=== PATIENT | male | born 1950 | race Caucasian/White ===

== ENCOUNTER 2016-09-28 04:25 | Observation (INO) | payer MEDICARE, MEDICAID ==
--- NOTE | 2016-09-28 05:05 | HP ---
H&P (Free Text) History and Physical: PCP: Neela Avila DO Cardiology: Jeffry Santana MD Date/Time of Evaluation: 09/28/2016 0500 CC: SOB HPI: Mr Merchant is a highly evasive 66YO male HX CAD, ischemic cardiomyopathy, AFIB, DM, & CKD presents in transfer from [place] ED where he reported rapid onset of SOB and BLE swelling around 2230 prompting presentation to [place] ED where he was found to be in acute on chronic systolic HF with a troponin of 0.09 for which transfer was recommended by his PCP. He denies chest pain, N/V, palpitations, and light-headedness. He denies exacerbating or alleviating factors. Currently he relates his ankles are back to baseline size and his SOB has resolved, but is unaware what made them better. PMedHx ischemic cardiomyopathy EF 25-30% chronic systolic HF CAD/CABG pacerAICD AFIB DM2 HTN HLD CKD stg 3 hypothyroidism gout GERD Ambulatory Orders Metoprolol Succinate XL TAB* [Toprol XL TAB*] 25 mg PO BID 01/26/14 Spironolactone TAB* [Aldactone TAB 25 MG*] 25 mg PO DAILY 01/26/14 Acetaminophen TAB* [Tylenol TAB*] 2 tab PO Q4H PRN 08/13/15 Allopurinol TAB* [Zyloprim 100 MG TAB*] 100 mg PO DAILY 08/13/15 Atorvastatin* [Lipitor 20 MG*] 20 mg PO BEDTIME 08/13/15 Ibuprofen TAB* [Motrin TAB* 600 MG] 600 mg PO Q6H PRN 08/13/15 Insulin ASPART (NF) [Novolog (NF)] 24 unit SUBCUT TID 08/13/15 Insulin Glargine (Nf) [Toujeo Solostar Pen (NF)] 80 unit SUBCUT BEDTIME Levothyroxine TAB* [Synthroid 100 MCG TAB*] 200 mcg PO DAILY 08/13/15 Linagliptin (NF) [Tradjenta (NF)] 5 mg PO DAILY 08/13/15 Losartan TAB* [Cozaar TAB*] 25 mg PO DAILY 08/13/15 Omeprazole CAP* [Prilosec CAP* 20 MG] 20 mg PO DAILY 08/13/15 Torsemide [Demadex 10 MG-] 10 mg PO DAILY 08/13/15 Warfarin TAB(*) [Coumadin TAB(*)] 3 mg PO SUMOWEFR 08/13/15 Warfarin TAB(*) [Coumadin TAB(*)] 3.5 mg PO TUTHSA 08/13/15 Allergies Lisinopril Allergy (Verified 01/26/14 16:49) SocHx: quit smoking ~10 years ago continues to chew tobacco, former heavy drinker quit ~10 years ago, denies recreational drugs; resides at [facility] ; full code status FamHx: positive for DM2, HTN ROS: as above, otherwise reviewed and all were negative Constitutional: NAD, normally developed, obese white male vitals: Vital Signs Temp 36.3 C 09/28/16 04:40 Pulse 70 09/28/16 04:40 Resp 17 09/28/16 04:40 BP 111/62 09/28/16 04:40 Pulse Ox 94 09/28/16 04:40 Intake & Output 09/27/16 09/27/16 09/28/16 11:59 23:59 11:59 Weight 81.647 kg HEENM: atraumatic; sclera/conjunctiva: non-icteric/clear; hearing: clinically intact; oropharynx: clear, mucosa moist Neck: soft tissue: non-tender; thyroid: normal Pulmonary: clear to auscultation bilaterally, good aeration, no accessory muscle use CV: RR/RR, normal S1S2, no carotid bruit, no jugular venous distention, 2+ B DP/ PT, 1+ BLE edema Abdominal: soft, non-distended, non-tender, no rebound/guarding/rigidity, normoactive bowel sounds, no hepatosplenomegaly or masses, no costovertebral angle tenderness Musculoskeletal: general: grossly intact, no palpable tenderness 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 No acute cardiopulmonary disease seen. Impression: 66M presenting with acute on chronic systolic HF DIAGNOSIS & PLAN Primary acute on chronic systolic HF : furosemide diuresis : daily weights : strict I&Os : update ECHO : consider cardiology consult in AM pending above results Secondary ischemic cardiomyopathy EF 25-30%/chronic systolic HF : review meds once reconciled CAD/CABG : review meds once reconciled AFIB : review meds once reconciled DM2 : check A1c : review meds once reconciled : ACHS glucometry CKD stg 3 : review meds once reconciled hypothyroidism : review meds once reconciled GERD : PO omeprazole gout : review meds once reconciled Admission Rational: CDU observation for SOB, increased LE swelling DVTp: SCDs & continue warfarin Code Status: full HCP: sonRiley
[2016-09-28] MEDS ORDERED: Acetaminophen TAB* 325 MG PO PRN (05:07)
[2016-09-28] MEDS ORDERED: Albuterol 2.5 MG/3 ML NEB.SOL* (0.083%) INH PRN (05:07)
[2016-09-28] MEDS ORDERED: traMADol TAB* 50 MG PO PRN (05:09)
[2016-09-28] MEDS ORDERED: Ondansetron INJ* 2 MG/ML VIAL IV PRN (05:09)
--- NOTE | 2016-09-28 06:06 | ED ---
I, Oh,Omid, scribed for Tony Bowen MD on 09/28/16 at 0448 . Shortness of Breath - HPI Summary HPI Summary: This 66 y/o male presents to ED from [place] for acute on chronic SOB and BLE swelling since tonight. SOB is resolved upon arrival. Negative fever, chills, CP , n/v, diaphoresis, or cough. Stress test is not UTD. PMHx includes HTN, afib s/ p, CHF, and DM. 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 Pt is currently on diuretics and anticoagulants. - History of Current Complaint Chief Complaint: EDShortnessOfBreath Time Seen by Provider: 09/28/16 04:31 Hx Obtained From: Patient, Medical Records Onset/Duration: Still Present Timing: Constant Aggrevating Factors: Nothing Alleviating Factors: Spontaneous Resolution Associated Signs & Symptoms: Cough (Nonproductive), Edema - BLE - Allergy/Home Medications Allergies/Adverse Reactions: Allergies Allergy/AdvReac Type Severity Reaction Status Date / Time Lisinopril Allergy unk Verified 01/26/14 16:49 PMH/Surg Hx/FS Hx/Imm Hx Endocrine/Hematology History: Reports: Hx Diabetes, Hx Thyroid Disease - hypothyroid Cardiovascular History: Reports: Hx Congestive Heart Failure, Hx Hypertension, Hx Pacemaker/ICD - pacer/defibrilator, Other Cardiovascular Problems/Disorders - CABG, cardiomyopathy History: Reports: Hx Acute Renal Failure Musculoskeletal History: Reports: Hx Arthritis, Other Musculoskeletal History - several limb fractures, surgically repaired Sensory History: Reports: Hx Contacts or Glasses Opthamlomology History: Reports: Hx Contacts or Glasses Neurological History: Reports: Other Neuro Impairments/Disorders - encephalopathy Denies: Hx Dementia - Surgical History Hx Anesthesia Reactions: No Infectious Disease History: Denies: Traveled Outside the [place] in Last 30 Days - Family History Known Family History: Negative: Cardiac Disease - Social History Alcohol Use: None Alcohol Amount: Hx of ETOH abuse Substance Use Type: Reports: None Hx Tobacco Use: Yes Smoking Status (MU): Former Smoker Review of Systems Negative: Fever, Skin Diaphoresis Negative: Chest Pain Positive: Shortness Of Breath. Negative: Cough Negative: Vomiting, Nausea Positive: Edema - BLE All Other Systems Reviewed And Are Negative: Yes Physical Exam - Summary Physical Exam Summary: The patient is well-nourished in no acute distress and in no acute pain. The skin is warm and dry and skin color reflects adequate perfusion. Negative cyanosis. HEENT: The head is normocephalic and atraumatic. The pupils are equal and reactive. The conjunctivae are clear and without drainage. Nares are patent and without drainage. Mouth reveals moist mucous membranes and the throat is without erythema and exudate. The external ears are intact. The ear canals are patent and without drainage. The tympanic membranes are intact. Neck is supple with full range of motion and non-tender. There are no carotid bruits. There is positive neck vein distension. Respiratory: Chest is non-tender. Lungs are noted with crackles and decreased breath sounds. Cardiovascular: Hear is regular rate and rhythm. There is no murmur or rub auscultated. There is no peripheral edema and pulses are symmetrical and equal. Abdomen: The abdomen is soft and non-tender. There are normal bowel sounds heard in all four quadrants and there is no organomegaly palpated. Musculoskeletal: There is no back pain noted. Extremities are non-tender with full range of motion. There is good capillary refill. Pitting edema. No calf tenderness Neurological: Patient is alert and oriented to person, place and time. The patient has symmetrical motor strength in all four extremities. Cranial nerves are grossly intact. Deep tendon reflexes are symmetrical and equal in all four extremities. Psychiatric: The patient has an appropriate affect and does not exhibit any anxiety or depression. Triage Information Reviewed: Yes Vital Signs On Initial Exam: Initial Vitals Temp Pulse Resp BP Pulse Ox 97.4 F 70 17 111/62 94 09/28/16 04:34 09/28/16 04:34 09/28/16 04:34 09/28/16 04:34 09/28/16 04:34 Vital Signs Reviewed: Yes Diagnostics - Vital Signs Vital Signs Temp Pulse Resp BP Pulse Ox 09/28/16 04:34 97.4 F 70 17 111/62 94 - Laboratory Lab Statement: Any lab studies that have been ordered have been reviewed, and results considered in the medical decision making process. - EKG 0447 Cardiac Rate: Other Rate - Paced rhythm at 70 bpm Course/Dx - Course Assessment/Plan: This 66 y/o male presents to ED via ambulance from [place] for elevated BNP and SOB since yesterday. PMHx is signficant for CHF. EMR from [facility] is reviewed. Upon examination pt is noted with rhonchi and decreased breath sounds throughout, and bilat pitting edema. Plan of care involving admission for further work is discussed with Dr. Maldonado (Hospitalist information security manager), and pt is accepted for admission. - Diagnoses Differential Diagnosis/HQI/PQRI: Positive: CHF, ID, Other - renal insufficiency, Provider Diagnoses: Acute dyspnea, Elevated troponin - Physician Notifications Discussed Care of Patient With: Wilmar Maldonado Time Discussed With Above Provider: 04:56 Discharge - Discharge Plan Condition: Stable Disposition: ADMITTED TO [facility] documentation as recorded by the Ron ang Soohyun accurately reflects the service I personally performed and the decisions made by , Tony Bowen MD.
[2016-09-28 07:37] LABS: Hematocrit 38 % (42-52); Hemoglobin 11.6 g/dl (14.0-18.0); Mean Corpuscular HGB Conc 31 g/dl (31-36); Mean Corpuscular Hemoglobin 26 pg (27-31); Mean Corpuscular Volume 85 fL (80-94); Mean Platelet Volume 9 um3 (7.4-10.4); Red Cell Distribution Width 19 % (10.5-15); White Blood Count 8.5 10^3/ul (3.5-10.8)
[2016-09-28] MEDS: Allopurinol TAB* 100 MG PO SCH (07:37)
[2016-09-28] MEDS: Omeprazole CAP* 20 MG PO SCH (07:37)
[2016-09-28] MEDS: Levothyroxine TAB* 150 MCG TAB PO SCH (07:38)
[2016-09-28] MEDS: Tamsulosin CAP* 0.4 MG PO SCH (07:38)
[2016-09-28] MEDS: Spironolactone TAB* 25 MG PO SCH (07:39)
[2016-09-28] MEDS: Docusate CAP* 100 MG PO SCH ×2 (07:40→21:46)
[2016-09-28] MEDS: Losartan TAB* 25 MG PO SCH (07:40)
[2016-09-28] MEDS: Metoprolol Succinate XL TAB* 25 MG PO SCH ×2 (07:41→21:46)
[2016-09-28] MEDS: Furosemide IV* 10 MG/ML VIAL (40 MG) IV SCH ×2 (07:41→11:22)
[2016-09-28] MEDS: LINAGLIPTIN 5 MG PO SCH (07:44)
[2016-09-28] MEDS: DUTASTERIDE 0.5 MG PO SCH (07:44)
[2016-09-28 07:48] LABS: BUN/Creatinine Ratio 37.6 (8-20); Calcium 8.7 mg/dL (8.6-10.3); EGFR African American 46.7 (>60); EGFR Non-African American 36.3 (>60); Potassium 5.2 mmol/L (3.5-5.0)
[2016-09-28] MEDS ORDERED: Omeprazole CAP* 20 MG PO SCH (09:00)
[2016-09-28] MEDS ORDERED: Perflutren Lipid Microsphere* 3 ML VIAL ONE (09:56)
[2016-09-28] MEDS: Insulin LISPRO* 1 UNITS UNIT SUBCUT SCH ×3 (10:59→21:27)
[2016-09-28 11:07] LABS: Troponin I 0.08 ng/mL (<0.04)
--- NOTE | 2016-09-28 14:40 | PN ---
Subjective Date of Service: 09/28/16 Interval History: Patient seen this morning. States he is feeling improved in terms of breathing and LE edema. Not quite back to baseline. No chest pain. States he thinks he drinks over a gallon of water daily. Discussed limiting fluid intake with his poor cardiac function. Family History: Unchanged from Admission Social History: Unchanged from Admission Past Medical History: Unchanged from Admission Objective Active Medications: Acetaminophen (Tylenol Tab*) 650 mg PO Q6H PRN Albuterol (Ventolin 2.5 Mg/3 Ml Neb.Fidelia*) 2.5 mg INH Q2H PRN Allopurinol (Zyloprim Tab*) 100 mg PO DAILY JENNIFER Atorvastatin Calcium (Lipitor*) 20 mg PO BEDTIME JENNIFER Docusate Sodium (Colace Cap*) 200 mg PO BID JENNIFER Dutasteride (Avodart (Nf)) 0.5 mg PO QAM JENNIFER Furosemide (Lasix Iv*) 40 mg IV 0800,1200 [facility] Insulin Glargine (Lantus(*)) 64 units SUBCUT 2100 [facility] Insulin Human Lispro (Humalog*) 24 units SUBCUT TID JENNIFER Levothyroxine Sodium (Synthroid Tab*) 150 mcg PO 0600 JENNIFER Linagliptin (Tradjenta (Nf)) 5 mg PO DAILY JENNIFER Losartan Potassium (Cozaar Tab*) 25 mg PO DAILY JENNIFER Metoprolol Succinate (Toprol Xl Tab*) 25 mg PO BID JENNIFER Omeprazole (Prilosec Cap*) 20 mg PO DAILY@0600 JENN[facility]ER Ondansetron HCl (Zofran Inj*) 4 mg IV Q6H PRN Spironolactone (Aldactone Tab*) 25 mg PO DAILY JENNIFER Tamsulosin HCl (Flomax Cap*) 0.4 mg PO DAILY JENNIFER Tramadol HCl (Ultram*) 50 mg PO Q6H PRN Warfarin Sodium (Coumadin Tab(*)) 2.5 mg PO TUTHSA JENNIFER Warfarin Sodium (Coumadin Tab(*)) 3 mg PO SUMOWEFR [facility] Vital Signs 09/28/16 09/28/16 09/28/16 05:09 05:30 05:32 Temperature Pulse Rate 70 71 Respiratory 14 25 24 Rate Blood Pressure 89/51 108/55 (mmHg) O2 Sat by Pulse 97 99 Oximetry 09/28/16 09/28/16 09/28/16 06:11 07:33 10:06 Temperature 97.4 F 97.4 F Pulse Rate 71 70 75 Respiratory 22 18 14 Rate Blood Pressure 129/61 105/46 (mmHg) O2 Sat by Pulse 100 99 98 Oximetry 09/28/16 11:22 Temperature 97.4 F Pulse Rate 70 Respiratory 16 Rate Blood Pressure 97/42 (mmHg) O2 Sat by Pulse 95 Oximetry Oxygen Devices in Use Now: None Appearance: Middle-aged, M, laying in bed in NAD Eyes: No Scleral Icterus Ears/Nose/Mouth/Throat: Mucous Membranes Moist Neck: NL Appearance and Movements; NL JVP Respiratory: Symmetrical Chest Expansion and Respiratory Effort, - - Rales in B/ L bases Cardiovascular: NL Sounds; No Murmurs; No JVD, RRR Abdominal: NL Sounds; No Tenderness; No Distention Lymphatic: No Cervical Adenopathy Extremities: - - Mild tense edema in B/L LEs to mid-shins, some mild skin breakdown Neurological: Alert and Oriented x 3 Result Diagrams: 09/28/16 07:15 09/28/16 07:15 Assess/Plan/Problems-Billing Assessment: Acute on chronic systolic CHF exacerbation in a 66 yo M with hx of ICM (EF 25-30 %), CAD, AFib on coumadin, DM, CKD - Patient Problems (1) Acute systolic CHF (congestive heart failure) Current Visit: No Comment: on chronic. May be related to excessive fluid intake. Continue BID IV Lasix and home cardiac medications. Strict I/O, daily weights. Repeat echo pending. Fluid restrict to 1500 cc/day. Suspect mild troponin elevation from CHF, chronic for the patient, down slightly from [place], stop trending. (2) CAD (coronary artery disease) Current Visit: Yes Comment: Continue beta-sarita, statin, ARB (3) Afib Current Visit: No Comment: Continue Metoprolol and Coumadin, INR therapeutic (4) Diabetes Current Visit: Yes Comment: Continue home Lispro, glargine conversion (5) History of hypothyroidism Current Visit: No Comment: Continue home synthroid (6) DVT prophylaxis Current Visit: No Comment: Warfarin.
--- NOTE | 2016-09-28 15:51 | ECHO ---
Patient: TOM MILLER [facility] Rec#: [id number] : 1950 Date: 09/28/2016 Age: 66y Height: 157.48 cm / 62.0 in Weight: 81.65 kg / 180.0 lbs Sex: M BSA: 1.83 Room#: 435 Admit Date#: 09/28/2016 Type: Inpatient Referring: Wilmar Maldonado MD Reading: Kashif Egan MD Patient Ombudsperson: America Metzger RDCS CC: Kel Avila DO Transthoracic Echocardiogram Indication: CAD/systolic heart failure BP: 129/61 HR: 94 Rhythm: Paced Findings History: CAD,ischemic cardiomyopathy,a-fib,DM,CKD stage III,s/p AICD implant,HTN,HLD. Technical Comments: The study is technically difficult. The study is technically limited due to patient body habitus. Left Ventricle: The left ventricular size is mild to moderately dilated. There is evidence of an ischemic cardiomyopathy. Diffuse severe hypokinesis is noted with the posterior wall showing the best movement. There is severely decreased left ventricular systolic function. The estimated ejection fraction is 20-25%. There is abnormal ventricular septal wall motion consistent with right ventricular pacemaker. The left ventricular diastolic filling pattern is restrictive. Left Atrium: The left atrium is moderately dilated. Right Ventricle: The right ventricle is not well visualized. A pacemaker wire is visualized in the right ventricle. Right Atrium: The right atrium is mildly dilated. A pacemaker wire is visualized in the right atrium. Aortic Valve: The aortic valve is trileaflet. The aortic valve leaflets are mildly thickened. There is no evidence of aortic regurgitation. There is no evidence of aortic stenosis. Mitral Valve: There is mitral annular calcification. There is mild mitral regurgitation. There is no evidence of mitral stenosis. Tricuspid Valve: The tricuspid valve leaflets are normal. There is mild to moderate tricuspid regurgitation. There is evidence of moderate pulmonary hypertension. There is no tricuspid stenosis. Pulmonic Valve: The pulmonic valve appears normal. There is no evidence of pulmonic regurgitation. There is no pulmonic stenosis. Pericardium: A pericardial fat pad is visualized. Aorta: The ascending aorta is not well visualized. There is no dilatation of the aortic arch. There is no dilation of the aortic root. Pulmonary Artery: The main pulmonary artery appears normal. Venous: The venous system is not well visualized. Contrast: Definity was used to optimize study. A total of 8ml was used. Intravenous contrast was used to enhance endocardial border definition. Conclusions The study is technically difficult. The study is technically limited due to patient body habitus. There is severely decreased left ventricular systolic function. The estimated ejection fraction is 20-25%. The left atrium is moderately dilated. The left ventricular diastolic filling pattern is restrictive. There is mild mitral regurgitation. There is mild to moderate tricuspid regurgitation. There is evidence of moderate pulmonary hypertension. Compared to report of prior study of08/13/2015 there is no significant change. The overall LV systolic function is minimally worse (was 25-30%). the mitral regurgitation slightly increase (was trace to mild). Measurements Name Value Normal Range RVIDd (AP) 2D 4.1 cm (0.9 - 2.6) RAd ISD 4CH 5.6 cm (3.4 - 4.9) RA (A4C)W 4 cm (2.9 - 4.6) IVSd (2D) 0.9 cm (0.6 - 1) LVPWd (2D) 0.7 cm (0.6 - 1) LVIDd (2D) 5.8 cm (3.6 - 5.4) LVIDs (2D) 5.3 cm - LV FS (2D) 8 % (25 - 45) Aortic Annulus 1.9 cm (1.4 - 2.6) Ao root diameter (2D) 2.8 cm (2.1 - 3.5) Aortic arch 2 cm (1.8 - 3.4) Descending Ao 0.5 cm - LA dimension (AP) 2D 4.8 cm (2.3 - 3.8) LAd ISD 4CH 7.1 cm (2.9 - 5.3) LA ISD 4CH W 5.1 cm (2.5 - 4.5) Name Value Normal Range LA ESV SP 4CH (A/L) 93 ml - LA ESV SP 2CH (A/L) 86 ml - LA ESV BP (A/L) 91 ml - LA ESV BP (A/L) index 49.64 ml/m2 - LA ESV SP 4CH (MOD) 91 ml - LA ESV SP 2CH (MOD) 82 ml - Name Value Normal Range MV E-wave Vmax 1.2 m/sec - MV deceleration time 154 msec - MV A-wave Vmax 0.4 m/sec - MV E:A ratio 3.25 ratio - LV septal e' Vmax 0.06 m/sec - LV lateral e' Vmax 0.06 m/sec - LV E:e' septal ratio 20 ratio - LV E:e' lateral ratio 20 ratio - Name Value Normal Range AV Vmax 1.3 m/sec - AV VTI 26 cm - AV peak gradient 6.3 mmHg - AV mean gradient 3.59 mmHg - LVOT Vmax 0.9 m/sec - LVOT VTI 16.6 cm - LVOT peak gradient 3.52 mmHg - LVOT mean gradient 1.5 mmHg - Name Value Normal Range TR Vmax 3.1 m/sec - TR peak gradient 38 mmHg - RAP 8 mmHg - RVSP 46 mmHg - Name Value Normal Range PV Vmax 0.6 m/sec - PV peak gradient 1.67 mmHg -
[2016-09-28] MEDS ORDERED: Warfarin TAB(*) 2.5 MG PO SCH (17:00)
[2016-09-28] MEDS ORDERED: INSULIN GLARGINE (NF) 300 UNIT/ML INJ SUBCUT SCH (21:00)
[2016-09-28] MEDS ORDERED: Atorvastatin* 20 MG TAB PO SCH (21:00)
[2016-09-28] MEDS ORDERED: Insulin GLARGINE(*) 1 UNITS UNIT SUBCUT SCH (21:00)
[2016-09-28 22:00] LABS: Magnesium 2.1 mg/dL (1.9-2.7)
[2016-09-28] MEDS ORDERED: Insulin GLARGINE(*) 1 UNITS UNIT SUBCUT ONE (22:00)
[2016-09-29] MEDS: Levothyroxine TAB* 150 MCG TAB PO SCH (06:05)
[2016-09-29] MEDS: Omeprazole CAP* 20 MG PO SCH (06:10)
[2016-09-29 06:57] LABS: BUN/Creatinine Ratio 36.3 (8-20); Calcium 8.9 mg/dL (8.6-10.3); EGFR African American 44.7 (>60); EGFR Non-African American 34.8 (>60); Potassium 5.1 mmol/L (3.5-5.0)
[2016-09-29] MEDS: DUTASTERIDE 0.5 MG PO SCH (08:47)
[2016-09-29] MEDS: LINAGLIPTIN 5 MG PO SCH (08:47)
[2016-09-29] MEDS: Insulin LISPRO* 1 UNITS UNIT SUBCUT SCH ×2 (08:55→13:40)
[2016-09-29] MEDS: Metoprolol Succinate XL TAB* 25 MG PO SCH (08:56)
[2016-09-29] MEDS: Docusate CAP* 100 MG PO SCH (08:56)
[2016-09-29] MEDS: Tamsulosin CAP* 0.4 MG PO SCH (08:56)
[2016-09-29] MEDS: Losartan TAB* 25 MG PO SCH (08:56)
[2016-09-29] MEDS: Spironolactone TAB* 25 MG PO SCH (08:56)
[2016-09-29] MEDS: Allopurinol TAB* 100 MG PO SCH (08:56)
--- NOTE | 2016-09-29 09:31 | DCNOTE ---
Patient seen this morning. Reports feeling about back to baseline. LE edema improved. Counseled on importance of fluid restriction and close monitoring of his weights at home. On exam, lungs CTA B/L, no w/r/r, abd obese, soft, NTND, BS+, trace LE edema. Plan to discharge home today on oral diuretics. F/U with PCP and Dr. Santana
[2016-09-29] MEDS ORDERED: Furosemide TAB* 40 MG PO SCH (10:00)
[2016-09-29] MEDS ORDERED: Furosemide TAB* 20 MG PO SCH (10:00)
[2016-09-29 12:26] VITALS: BP 109/54
[2016-09-29] MEDS ORDERED: Warfarin TAB(*) 3 MG PO SCH (17:00)
--- NOTE | 2016-09-30 06:15 | DS ---
CC: Kel Avila DO; Dr. Huy Santana * DISCHARGE SUMMARY: DATE OF ADMISSION: 09/28/16 DATE OF DISCHARGE: 09/29/16 PRIMARY CARE PHYSICIAN: Kel Avila DO PRINCIPAL DISCHARGE DIAGNOSES: [id number] systolic congestive heart failure exacerbation. SECONDARY DIAGNOSES: 1. Ischemic cardiomyopathy. 2. Coronary artery disease, status post pacemaker and ICD. 3. Hypertension. 4. Hyperlipidemia. 5. Chronic kidney disease 3. 6. Atrial fibrillation. 7. Type 2 diabetes. 8. Hypothyroidism. 9. Gastroesophageal reflux disease. DISCHARGE MEDICATION REGIMEN: 1. Lasix 40 mg by mouth daily. 2. Allopurinol 100 mg by mouth daily. 3. Toprol XL 25 mg by mouth 3 times daily. 4. Omeprazole 20 mg by mouth daily. 5. Atorvastatin 20 mg by mouth at bedtime. 6. Linagliptin 5 mg by mouth daily. 7. Losartan 25 mg by mouth daily. 8. Flomax 0.4 mg by mouth daily. 9. Dutasteride 0.5 mg by mouth daily. 10. Tylenol 650 mg by mouth every 4 hours as needed for pain. 11. Synthroid 150 mcg by mouth daily. 12. Coumadin 3 mg Tuesday, Tuesday, Tuesday; 2.5 mg Tuesday, Tuesday, , Tuesday. 13. Insulin glargine 25 units subcutaneous at bedtime. 14. Spironolactone 25 mg by mouth 2 times daily. 15. Aspart 24 units before breakfast and lunch; 14 units before dinner. STUDIES DONE DURING HOSPITALIZATION: Transthoracic echocardiogram, conclusion: Study is technically difficult, limited due to the patient's body habitus. There is severely decreased left ventricular systolic function with estimated ejection fraction of 20% to 25%. The left atrium is moderately dilated. The left ventricular diastolic filling pattern is restrictive. Mild mitral regurgitation, [id number] tricuspid regurgitation. There is evidence of moderate pulmonary hypertension. Compared to the prior study of 08/13/15, there is no significant change. The overall LV systolic function is minimally worse. The mitral regurgitation is slightly increased. HISTORY OF PRESENT ILLNESS AND HOSPITAL SUMMARY: Please see the full history and physical by Dr. Wilmar Maldonado for full details. Briefly, Mr. Merchant is a 66-year- old male with a past medical history as above who presented to the hospital as a transfer from [place] where he initially presented with shortness of breath and lower extremity swelling. The patient does endorse some excessive fluid intake and he was counseled on this during the hospitalization. He was diagnosed with a CHF exacerbation. He had a mild troponin elevation of 0.09. He [place] [facility]. The patient was diuresed with IV Lasix with significant improvement in his symptoms. Troponins trended down. He under-went an echocardiogram as above that showed that his cardiac function was largely unchanged. Perhaps, his ejection fraction was slightly lower. The patient was again counseled on diet and fluid intake. He will be discharged on a slightly higher dose of Lasix at 40 mg by mouth daily. Remainder of his medications were unchanged. He should follow up with his PCP as well as with Dr. Santana. TIME SPENT: Total time spent on this discharge 45 minutes. This is a summary of the hospitalization. Please see the full medical record for further details. [id number] #: [id number] MTDD
== END 2016-09-29 13:50 | disposition home or self-care (01) ==
LOC: ED 04:25 → MEDTELE 05:06
PROVIDERS: ADMIT Hospitalist; ATTEND Hospitalist
DX: I13.0 Hypertensive heart and chronic kidney disease with heart failure and stage 1 through stage 4 chronic kidney disease, or unspecified chronic kidney disease (principal); I50.23 Acute on chronic systolic (congestive) heart failure; N18.3 Chronic kidney disease, stage 3 (moderate); E11.22 Type 2 diabetes mellitus with diabetic chronic kidney disease; Z79.4 Long term (current) use of insulin; I25.5 Ischemic cardiomyopathy; I25.10 Atherosclerotic heart disease of native coronary artery without angina pectoris; Z95.810 Presence of automatic (implantable) cardiac defibrillator; I48.91 Unspecified atrial fibrillation; Z79.01 Long term (current) use of anticoagulants; K21.9 Gastro-esophageal reflux disease without esophagitis; E03.9 Hypothyroidism, unspecified; Z79.899 Other long term (current) drug therapy; Z88.8 Allergy status to other drugs, medicaments and biological substances; Z87.891 Personal history of nicotine dependence; I51.7 Cardiomegaly
CPT/HCPCS: 36415; 80048; 83735; 83880; 84484; 85027; 85610; 93005; 93306; 94760; 96374; 99283; A9270-GY; C8929; G0378; J1940

== ENCOUNTER 2017-01-09 15:35 | Inpatient (IN) | payer MEDICARE, MEDICAID ==
[2017-01-09] MEDS ORDERED: Dextrose 50% Syringe 50 ML* 25 GM/50 ML SYRINGE IV PUSH PRN (18:19)
[2017-01-09 18:48] LABS: Hematocrit 37 % (42-52); Hemoglobin 11.4 g/dl (14.0-18.0); Mean Corpuscular HGB Conc 31 g/dl (31-36); Mean Corpuscular Hemoglobin 24 pg (27-31); Mean Corpuscular Volume 77 fL (80-94); Mean Platelet Volume 8 um3 (7.4-10.4); Red Blood Count 4.78 10^6/ul (4.0-5.4); Red Cell Distribution Width 20 % (10.5-15); White Blood Count 10.4 10^3/ul (3.5-10.8)
[2017-01-09 18:50] LABS: Add Diff/Slide Review? Slide Review Added; Comments Flag Yes
[2017-01-09 19:02] LABS: Albumin 2.5 g/dL (3.2-5.2); BUN/Creatinine Ratio 31.7 (8-20); EGFR African American 65.4 (>60); EGFR Non-African American 50.8 (>60); Globulin 2.8 g/dL (2-4); Magnesium 1.4 mg/dL (1.9-2.7); Potassium 2.9 mmol/L (3.5-5.0); Total Bilirubin 1.7 mg/dL (0.2-1.0); Total Protein 5.3 g/dL (6.4-8.9)
[2017-01-09 19:06] LABS: Troponin I 0.16 ng/mL (<0.04)
[2017-01-09] MEDS ORDERED: Magnesium Sulfate IV* 3 GM in NS 0.9% 100 ML* 100 ML IVPB ONE (19:23)
[2017-01-09] MEDS ORDERED: Acetaminophen TAB* 325 MG PO PRN (19:57)
[2017-01-09] MEDS ORDERED: Magnesium Sulfate 1 GM IV* 1 GM/100 ML BAG IV ONE (21:00)
[2017-01-09] MEDS ORDERED: Magnesium Sulfate 2 GM IV IVPB ONE (21:30)
[2017-01-09] MEDS: Atorvastatin* 20 MG TAB PO SCH (21:33)
[2017-01-09] MEDS: Metoprolol Succinate XL TAB* 25 MG PO SCH (21:33)
[2017-01-09] MEDS: Potassium Chlor TAB* 20 MEQ TAB.ER PO SCH ×2 (21:34→23:56)
[2017-01-09] MEDS: Insulin GLARGINE(*) 1 UNITS UNIT SUBCUT SCH (22:25)
[2017-01-09] MEDS: Insulin LISPRO* 1 UNITS UNIT SUBCUT SCH (22:26)
--- NOTE | 2017-01-09 22:47 | HP ---
HISTORY AND PHYSICAL: DATE OF ADMISSION: 01/09/17 CHIEF COMPLAINT: Sent from [facility] with concern that he seemed "groggy"; transferred to the [facility] ED and found to have troponin 0.137 and moderate bilateral pleural effusions, hypokalemia, was transferred for further cardiac access, ACS rule out. HISTORY OF PRESENT ILLNESS: Ehsan Merchant is a 66-year-old male with past medical history of CAD, ischemic cardiomyopathy with ejection fraction 20% to 25 % (09/28/16), atrial fibrillation on warfarin, insulin-dependent diabetes mellitus, chronic kidney disease stage 3, hypertension, hyperlipidemia, status post AICD, mild dementia, presenting as a transfer from [facility] after found elevated troponin of 0.137 and moderate bilateral pleural effusions. He was initially transferred there seemingly against his will from his [facility] as they were reportedly concern that he was "more groggy" morning of admission. Of note, he has had five emergency room visits to [facility] in the last month after an admission for acute CHF exacerbation. Upon arrival to [facility], he denies present complaints other than "shallow breathing." He is a somewhat poor historian, at times denying whether or not he had fevers or chills and then attesting that he may have had some over the last few days. Denies any cough. Has bilateral lower extremity swelling, he says stable from prior. He is currently on torsemide 40 mg daily with metolazone 10 mg daily and follows up with Dr. Ulloa of Cardiology for his ischemic cardiomyopathy and other cardiac comorbidities. Denies GI upset, nausea, vomiting, headaches, focal weakness. The patient received 40 mg of p.o. Lasix and per nursing records seemed to not received his torsemide 40 or metolazone 10 on the morning of presentation, now returning. MEDICATIONS: 1. Warfarin 2.5 mg p.o. daily. 2. Metolazone 10 mg p.o. daily. 3. Lantus 10 units q.h.s. 4. Acetaminophen 500 mg p.o. q.6 hours p.r.n. 1 to 2 tabs. 5. Mylanta 30 cc p.o. q.4 hours p.r.n. 6. Tums 2 tabs p.o. p.r.n. 7. Milk of magnesia 30 cc p.o. p.r.n. 8. Robitussin 10 cc p.o. p.r.n. 9. Neosporin ointment topically p.r.n. minor skin irritation. 10. Kaopectate 30 cc p.o. p.r.n. for diarrhea. 11. Imodium 2 capsules after loose bowel movements p.r.n. diarrhea. 12. Levothyroxine 150 mcg p.o. daily. 13. Dutasteride (Avodart) 0.5 mg p.o. q.a.m. 14. Atorvastatin 20 mg p.o. q.h.s. 15. Allopurinol 100 mg p.o. daily. 16. Torsemide 40 mg p.o. daily. 17. Tamsulosin 0.4 mg p.o. daily. ALLERGIES: LISINOPRIL. FAMILY HISTORY: Does not attest to any pertinent family history. SOCIAL HISTORY: Current nonsmoker, but former heavy smoker, although it is difficult to pin him down on how many years or how much given his dementia. Denies alcohol use or drug use. He is currently retired. His medical surrogate to be his son, Td Merchant of [place] in [place]. Of note, when asked how to spell Td, his son's name he was unable to and the electronic medical record list next of kin is Riley Merchant of [place], [place]. REVIEW OF SYSTEMS: Complete 14-point review of systems unable to be obtained, given dementia or altered mental status. Does attest to as per HPI, feeling slightly unwell and shallow breathing. PHYSICAL EXAMINATION GENERAL: No acute distress, sitting in hospital bed. VITAL SIGNS: Temperature 98.2, pulse rate 83, respiratory rate 22, satting 95% on 3 L, blood pressure 136/77. HEENT: Normocephalic, atraumatic. Pupils equally round and reactive to light. Extraocular motions intact. NECK: Supple. PULMONARY: Decreased at bilateral bases. No wheezing or rhonchi. ABDOMEN: Soft, nontender, slightly distended. No rebound or guarding. No Donis's sign. EXTREMITIES: 2+ pitting edema in bilateral legs with some chronic venous stasis changes. SKIN: Superficial skin breakdown on left anterior woodruff that have been covered by gauze bandage. No warmth. No drainage. NEUROLOGIC: Moving all extremities. Oriented to name and place and thinks it is 2015 after initially thinking it was 2006. DIAGNOSTIC STUDIES/LAB DATA: White count 10.4, hemoglobin 11.4, hematocrit 37 , platelets 214. Sodium 134, potassium 2.9, chloride 81, carbon dioxide 44, BUN 44, creatinine 1.39, glucose 210, calcium 8.0, mag 1.4, total bili 1.70, alk phos 137, troponin 0.16, albumin 2.5. Imaging of note obtained at [facility]. CT head, no bleed, no infarction , no mass effect, incidental mucous retention cyst of the left maxillary sinus. CT chest without contrast showed moderate bilateral pleural effusions with passive atelectasis both lungs. CT abdomen and pelvis without contrast showed no ascites, no obstruction, no appendix, some cholelithiasis without cholecystitis. ASSESSMENT AND PLAN: Ehsan Merchant is a 66-year-old male with complex past medical history as above most notable for ischemic cardiomyopathy 20% to 25%, presenting with multiple admissions over the last month for shortness of breath , cardiac complaints. He is obviously been difficult to manage given his heart failure, dementia and limited ability to take care of himself. Obviously needs to continue assisted living or residential facility environment. Main reason for transfer was elevated troponin 0.137, now increased to 0.16. Troponins will be trended. No inpatient stress test in our system, was referred to follow up with Dr. Ulloa after discharge August 2015 for consideration of same. We will trend troponins every 4 hours until peak, make him n.p.o. at midnight for potential stress test in a.m., but notably the patient is without any current complaint of chest pain or chest pressure, suspect he may have some demand ischemia in the setting of his CHF, hypokalemia. We will had a BNP, clinically nontoxic appearing. His kidney function is actually improved around the low end of his baseline per our system. We will continue his torsemide 40 mg daily, metolazone 10 mg 30 minutes prior. Some moderate pleural effusions likely the cause of his feeling slightly unwell. We will try to follow up Dr. Ulloa about the patient's dry weight and consider increase in diuretics to torsemide twice a day. We will aggressively replete his magnesium, potassium. Continue bus monitor, rhythm cardiac, and carbohydrate consistent diet until midnight. He is a full code. His medical surrogate is his son. His name is either Td or possibly Riley Merchant. [id number]/[facility] #: [id number] MTDFelipe
[2017-01-10 01:23] LABS: BUN/Creatinine Ratio 31.7 (8-20); Blood Urea Nitrogen 44 mg/dL (6-24); Calcium 7.9 mg/dL (8.6-10.3); Chloride 84 mmol/L (101-111); EGFR African American 65.4 (>60); EGFR Non-African American 50.8 (>60); Glucose 66 mg/dL (70-100); Sodium 136 mmol/L (133-145)
[2017-01-10 01:39] LABS: CO2 Carbon Dioxide 47 mmol/L (22-32); Troponin I 0.15 ng/mL (<0.04)
[2017-01-10] MEDS: Levothyroxine TAB* 150 MCG TAB PO SCH (05:55)
[2017-01-10 06:04] LABS: BUN/Creatinine Ratio 30.9 (8-20); Blood Urea Nitrogen 42 mg/dL (6-24); Calcium 8.1 mg/dL (8.6-10.3); Chloride 84 mmol/L (101-111); EGFR Non-African American 52.1 (>60); Glucose 65 mg/dL (70-100); Magnesium 2.3 mg/dL (1.9-2.7); Potassium 3.3 mmol/L (3.5-5.0); Sodium 137 mmol/L (133-145)
[2017-01-10 06:45] LABS: CO2 Carbon Dioxide 47 mmol/L (22-32)
[2017-01-10] MEDS ORDERED: Metolazone TAB* 5 MG PO ONE (08:00)
[2017-01-10] MEDS: Insulin LISPRO* 1 UNITS UNIT SUBCUT SCH ×4 (08:21→21:31)
[2017-01-10] MEDS: Omeprazole CAP* 20 MG PO SCH (08:26)
[2017-01-10] MEDS ORDERED: Furosemide IV* 10 MG/ML VIAL (40 MG) IV SLOW PU ONE (08:30)
[2017-01-10] MEDS ORDERED: Metolazone TAB* 5 MG PO SCH (08:30)
[2017-01-10] MEDS ORDERED: Torsemide TAB* 20 MG PO SCH (09:00)
[2017-01-10] MEDS: Tamsulosin CAP* 0.4 MG PO SCH (09:04)
[2017-01-10] MEDS: Metoprolol Succinate XL TAB* 25 MG PO SCH ×2 (09:04→21:03)
[2017-01-10] MEDS: Allopurinol TAB* 100 MG PO SCH (09:05)
[2017-01-10] MEDS: Finasteride TAB* 5 MG PO SCH (09:05)
--- NOTE | 2017-01-10 11:14 | PN ---
Subjective Date of Service: 01/10/17 Interval History: HOSPITALIST PROGRESS NOTE Patient seen and examined at bedside. He offers no new complaints today. States he's feeling okay, breathing is unchanged. Denies dietary non-compliance. Family History: Unchanged from Admission Social History: Unchanged from Admission Past Medical History: Unchanged from Admission Objective Active Medications: Acetaminophen (Tylenol Tab*) 650 mg PO Q4H PRN PRN Reason: Pain/fever Allopurinol (Zyloprim Tab*) 100 mg PO DAILY [facility] Last Admin: 01/10/17 09:05 Dose: 100 mg Atorvastatin Calcium (Lipitor*) 20 mg PO BEDTIME [facility] Last Admin: 01/09/17 21:33 Dose: 20 mg Dextrose (D50w Syringe 50 Ml*) 12.5 gm IV PUSH .FOR FS < 60 - SS PRN PRN Reason: FS < 60 Finasteride (Proscar Tab*) 5 mg PO DAILY [facility] Last Admin: 01/10/17 09:05 Dose: 5 mg Insulin Glargine (Lantus(*)) 10 units SUBCUT BEDTIME [facility] Last Admin: 01/09/17 22:25 Dose: 10 units Insulin Human Lispro (Humalog*) 0 units SUBCUT ACHS [facility] PRN Reason: Protocol Levothyroxine Sodium (Synthroid Tab*) 150 mcg PO DAILY@0600 [facility] Last Admin: 01/10/17 05:55 Dose: 150 mcg Metoprolol Succinate (Toprol Xl Tab*) 25 mg PO BID [facility] Last Admin: 01/10/17 09:04 Dose: 25 mg Omeprazole (Prilosec Cap*) 20 mg PO DAILY@0730 [facility] Last Admin: 01/10/17 08:26 Dose: 20 mg Potassium Chloride (Klor Con Er Tab*) 40 meq PO BID [facility] Tamsulosin HCl (Flomax Cap*) 0.4 mg PO DAILY [facility] Last Admin: 01/10/17 09:04 Dose: 0.4 mg Warfarin Sodium (Coumadin Tab(*)) 2.5 mg PO DAILY@1700 [facility] PRN Reason: Protocol Vital Signs 01/10/17 01/10/17 03:37 07:27 Temperature 98.2 F 97.2 F Pulse Rate 116 66 Respiratory 20 22 Rate Blood Pressure 129/60 131/63 (mmHg) O2 Sat by Pulse 96 100 Oximetry Oxygen Devices in Use Now: Nasal Cannula - 2 liters Appearance: Elderly male sitting up in a chair in NAD. Eyes: No Scleral Icterus Ears/Nose/Mouth/Throat: Mucous Membranes Moist Neck: Trachea Midline Respiratory: Symmetrical Chest Expansion and Respiratory Effort, - - BS+ bilaterally with bilateral crackles Cardiovascular: RRR - Normal S1 and S2 Extremities: - - Bilateral LE moderate pitting edema Neurological: - - AAOx2 (self and place), MENDIETA Result Diagrams: 01/09/17 18:42 01/10/17 05:28 Assess/Plan/Problems-Billing Assessment: Mr. Merchant is a 66yo M with PMH of ETOH abuse (quit in 2005), Afib, systolic CHF , s/p AICD, type 2 DM, hypothyroidism, CAD s/p CABG, CKD stage 3, who presented to [facility] with dyspnea and lethargy, found to have elevated troponin and transferred to [facility] for further evaluation. - Patient Problems (1) Acute on chronic respiratory failure with hypoxemia Comment: - Hypoxic and hypercapnic respiratory failure. - Likely a combination of systolic CHF exacerbation and COPD. (2) Acute systolic CHF (congestive heart failure) Comment: - As per note from Dr. Ulloa's office 12/28 patient had gained 12 pounds and "likes ham". Patient adamantly denies dietary non compliance and states he just eats what the facility gives him. - Dr Ulloa felt his prognosis is guarded due to his ischemic heart disease, decompensated CHF, paced rhythm, pulmonary HTN, and COPD. He was planning to start Entresto when patient more compensated. - Continue diuresis, monitor I/Os and daily weights. - Patient got upset when I broached the subject of Hospice secondary to his advanced heart/lung disease and did not want to talk about it. (3) Elevated troponin Comment: - Likely secondary to CHF exacerbation in the setting of CKD. - Stress test was abnormal 10/23 and plan is to continue medical management. (4) Afib Comment: - Patient is paced - continue Warfarin and Metoprolol. - D/c Telemetry. (5) Diabetes Comment: - Continue Lantus and Lispro SS. (6) Hypokalemia Comment: - Replete. (7) DVT prophylaxis Comment: - Warfarin. (8) Full code status Status and Disposition: Change to inpatient.
[2017-01-10] MEDS: Potassium Chlor TAB* 20 MEQ TAB.ER PO SCH ×2 (12:12→21:03)
[2017-01-10] MEDS: Warfarin TAB(*) 2.5 MG PO SCH (17:33)
[2017-01-10] MEDS: Atorvastatin* 20 MG TAB PO SCH (21:03)
[2017-01-10] MEDS: Insulin GLARGINE(*) 1 UNITS UNIT SUBCUT SCH (21:04)
[2017-01-11] MEDS: Levothyroxine TAB* 150 MCG TAB PO SCH (05:09)
[2017-01-11 06:25] LABS: BUN/Creatinine Ratio 33.8 (8-20); Calcium 8.4 mg/dL (8.6-10.3); EGFR African American 62.2 (>60); EGFR Non-African American 48.4 (>60)
[2017-01-11] MEDS ORDERED: Metolazone TAB* 5 MG PO ONE (07:18)
[2017-01-11] MEDS ORDERED: Furosemide IV* 10 MG/ML VIAL (40 MG) IV SLOW PU ONE (07:45)
[2017-01-11] MEDS: Omeprazole CAP* 20 MG PO SCH (08:03)
[2017-01-11] MEDS: Insulin LISPRO* 1 UNITS UNIT SUBCUT SCH ×4 (09:03→21:30)
[2017-01-11] MEDS: Metoprolol Succinate XL TAB* 25 MG PO SCH ×2 (09:04→22:41)
[2017-01-11] MEDS: Tamsulosin CAP* 0.4 MG PO SCH (09:04)
[2017-01-11] MEDS: Potassium Chlor TAB* 20 MEQ TAB.ER PO SCH ×2 (09:04→21:30)
[2017-01-11] MEDS: Finasteride TAB* 5 MG PO SCH (09:05)
[2017-01-11] MEDS: Allopurinol TAB* 100 MG PO SCH (09:05)
[2017-01-11] MEDS ORDERED: Losartan TAB* 25 MG PO SCH (12:00)
--- NOTE | 2017-01-11 12:39 | PN ---
Subjective Date of Service: 01/11/17 Interval History: HOSPITALIST PROGRESS NOTE Patient seen and examined at bedside. As per RN his SO2 was in the 70s on RA earlier today. Still feels dyspneic even with supplemental O2 on. Denies CP or palpitations. Family History: Unchanged from Admission Social History: Unchanged from Admission Past Medical History: Unchanged from Admission Objective Active Medications: Acetaminophen (Tylenol Tab*) 650 mg PO Q4H PRN PRN Reason: Pain/fever Allopurinol (Zyloprim Tab*) 100 mg PO DAILY [facility] Last Admin: 01/11/17 09:05 Dose: 100 mg Atorvastatin Calcium (Lipitor*) 20 mg PO BEDTIME [facility] Last Admin: 01/10/17 21:03 Dose: 20 mg Dextrose (D50w Syringe 50 Ml*) 12.5 gm IV PUSH .FOR FS < 60 - SS PRN PRN Reason: FS < 60 Digoxin (Lanoxin Tab*) 0.125 mg PO 1700 [facility] Stop: 01/18/17 16:59 Finasteride (Proscar Tab*) 5 mg PO DAILY [facility] Last Admin: 01/11/17 09:05 Dose: 5 mg Insulin Glargine (Lantus(*)) 10 units SUBCUT BEDTIME [facility] Last Admin: 01/10/17 21:04 Dose: 10 units Insulin Human Lispro (Humalog*) 0 units SUBCUT ACHS [facility] PRN Reason: Protocol Last Admin: 01/11/17 09:03 Dose: 1 unit Levothyroxine Sodium (Synthroid Tab*) 150 mcg PO DAILY@0600 [facility] Last Admin: 01/11/17 05:09 Dose: 150 mcg Losartan Potassium (Cozaar Tab*) 25 mg PO DAILY [facility] Metoprolol Succinate (Toprol Xl Tab*) 25 mg PO BID [facility] Last Admin: 01/11/17 09:04 Dose: 25 mg Omeprazole (Prilosec Cap*) 20 mg PO DAILY@0730 [facility] Last Admin: 01/11/17 08:03 Dose: 20 mg Potassium Chloride (Klor Con Er Tab*) 40 meq PO BID [facility] Last Admin: 01/11/17 09:04 Dose: 40 meq Tamsulosin HCl (Flomax Cap*) 0.4 mg PO DAILY [facility] Last Admin: 01/11/17 09:04 Dose: 0.4 mg Warfarin Sodium (Coumadin Tab(*)) 2.5 mg PO DAILY@1700 [facility] PRN Reason: Protocol Last Admin: 01/10/17 17:33 Dose: 2.5 mg Vital Signs - 8 hr 01/11/17 01/11/17 01/11/17 08:00 08:53 11:33 Temperature 97.2 F 97.3 F Pulse Rate 84 91 Respiratory 34 15 18 Rate Blood Pressure 115/61 147/68 (mmHg) O2 Sat by Pulse 100 100 Oximetry Oxygen Devices in Use Now: Nasal Cannula - 3 liters Appearance: Elderly male lying in bed in NAD. Eyes: No Scleral Icterus Ears/Nose/Mouth/Throat: Mucous Membranes Moist Neck: Trachea Midline Respiratory: Symmetrical Chest Expansion and Respiratory Effort, - - BS+ bilaterally with bibasilar crackles Cardiovascular: RRR - Normal S1 and S2 Abdominal: NL Sounds; No Tenderness; No Distention Extremities: - - Bilateral UE and LE edema. Sacral pitting edema Neurological: - - AAOx2 (self and place), MENDIETA Result Diagrams: 01/09/17 18:42 01/11/17 05:55 Assess/Plan/Problems-Billing Assessment: Mr. Merchant is a 66yo M with PMH of ETOH abuse (quit in 2005), Afib, systolic CHF , s/p AICD, type 2 DM, hypothyroidism, CAD s/p CABG, CKD stage 3, who presented to [facility] with dyspnea and lethargy, found to have elevated troponin and transferred to [facility] for further evaluation. - Patient Problems (1) Acute on chronic respiratory failure with hypoxemia Comment: - Hypoxic and hypercapnic respiratory failure. - Secondary to a combination of systolic CHF exacerbation and COPD. (2) Acute systolic CHF (congestive heart failure) Comment: - As per note from Dr. Ulloa's office 12/28 patient had gained 12 pounds and "likes ham". Patient adamantly denies dietary non compliance and states he just eats what the facility gives him. - ux manager contacted his [facility] - they only have a "no added salt" diet, meaning they won't have a salt shaker available, but this is not a low salt diet. If the meal includes high sodium content foods like ham or ferrer, the patient will eat them. - Dr Ulloa felt his prognosis is guarded due to his ischemic heart disease, decompensated CHF, paced rhythm, pulmonary HTN, and COPD. He was planning to start Entresto when patient more compensated. Cardiolofy consult requested with Dr. Santana. - Continue diuresis, monitor I/Os and daily weights. - Patient got upset when I broached the subject of Hospice secondary to his advanced heart/lung disease and did not want to talk about it, but if Cardiology agrees with the recommendation, patient may be open to conversation. (3) Elevated troponin Comment: - Likely secondary to CHF exacerbation in the setting of CKD. - Stress test was abnormal 10/23 and plan at that time was to continue medical management. (4) Afib Comment: - Patient is paced - continue Warfarin and Metoprolol. (5) Diabetes Comment: - Continue Lantus and Lispro SS. (6) Hypokalemia Comment: - Replete. (7) DVT prophylaxis Comment: - Warfarin. (8) Full code status Status and Disposition: Inpatient.
--- NOTE | 2017-01-11 13:01 | RAD ---
Indication: CHF. Pleural effusion. Coronary artery disease and cardiomyopathy. Comparison: January 09, 2017 CT chest. September 28, 2016 chest radiograph. Technique: Sitting AP and lateral chest views. Report: RIGHT atrial, RIGHT ventricular, and coronary sinus level pacemaker leads without gross change. Residual epicardial pacemaker leads. Median sternotomy wires and mediastinal vascular clips. No significant change in cardiomegaly. Prominent ill-defined central pulmonary vasculature with cephalization. Diffuse prominence of the interstitial markings. Moderate RIGHT and moderately large LEFT dependent pleural effusions with proportional atelectasis. IMPRESSION: No significant change in magnitude of pulmonary vascular congestion and interstitial edema with associated LEFT larger than RIGHT pleural effusions and proportional atelectasis compared with the January 09, 2017 CT.
[2017-01-11 15:41] LABS: TSH (Thyroid Stimulating Horm) 6.17 mcIU/mL (0.34-5.60)
[2017-01-11] MEDS: Warfarin TAB(*) 2.5 MG PO SCH (18:00)
[2017-01-11] MEDS: Digoxin TAB* 0.125 MG PO SCH (18:01)
[2017-01-11] MEDS ORDERED: NS 0.9% 250 ML* 250 ML IV ONE (18:31)
--- NOTE | 2017-01-11 18:31 | CONS ---
CC: Dr. Kel Avila, [place]; Dr. Malachi Ulloa * CARDIOLOGY CONSULTATION: DATE OF CONSULT: 01/11/17 INDICATION FOR CONSULTATION: Congestive heart failure. HISTORY OF PRESENT ILLNESS: The patient is a 66-year-old gentleman with a history of severe ischemic cardio-myopathy, who was admitted to hospital with significant worsening of his shortness of breath. The patient states that he had been doing well up until November of this year when he noticed increasing shortness of breath and decreased exercise tolerance. He was admitted to the hospital in September. At that time, he was actively diuresed and he was discharged from the hospital. He was not discharged on his losartan medication. He was seen in followup by Dr. Ulloa within the last month, at which time Dr. Ulloa switched him from Lasix to torsemide for better diuresis. He had suggested restarting his losartan and he had suggested potentially going to [facility] for his medications. The patient came to the emergency room yesterday because of significant worsening and shortness of breath. He denied any angina. He had positive orthopnea. He had positive lower extremity edema. He denied any palpitations. He denied any lightheadedness, dizziness, or syncope. Since being admitted to the hospital, he has been put on IV diuretics and has had diuresis of approximately 500 to 1000 cc over his intake. Again in speaking with the patient, he denies any anginal symptoms. The patient currently still has some shortness of breath with exertion. He seems comfortable and sitting in the chair. He does have some lower extremity edema. PAST MEDICAL HISTORY: Significant for, 1. Ischemic cardiomyopathy. 2. Coronary artery disease. 3. Coronary artery bypass surgery. 4. Hypothyroidism. 5. Diabetes. 6. Liver disease. 7. ICD implantation in 2012. 8. Last echocardiogram in November of 2016 showed ejection fraction of 25% to 30 %, trace MR, moderate TR, severe pulmonary hypertension, PA systolic pressure was 80. He does have biventricular ICD. It is a [place] scientific device. PAST SURGICAL HISTORY: 1. Coronary artery bypass surgery in 2000. 2. ICD implantation in 2000 with a replacement in 2012 with an upgrade of his BIV ICD. OUTPATIENT MEDICATIONS: 1. Potassium 10 mEq a day. 2. Metolazone 5 mg 30 minutes before Lasix dose. 3. Coumadin as directed. 4. Oxygen 2 liters. 5. Flomax 0.4 mg a day. 6. Avodart 0.5 mg a day. 7. Lipitor 20 mg a day. 8. Metoprolol ER 25 mg b.i.d. 9. Omeprazole 20 mg a day. 10. Insulin as directed. 11. Levothyroxine 150 mcg a day. 12. Lasix 20 mg a day. ALLERGIES: He is intolerant of lisinopril. He has been on losartan in the past and has tolerated that medication. SOCIAL HISTORY: He is . He is in assisted living. He is a previous smoker. He quit in the 70s. He was a former alcoholic. He quit 8 years ago. He tries to exercise regularly. PHYSICAL EXAM: Height is 5 feet 2 inches, weight is 174 pounds. Temperature 97.2, heart rate is 84, respiratory rate is 15, oxygen saturation 100% on 2 L, blood pressure 115/61. Sclerae anicteric. Oropharynx is pink without erythema. Carotids are 2+ without bruits. JVD is normal. Thyroid is normal. Cardiac exam: S1, S2, without any murmurs, rubs, or gallops. PMI is difficult to assess. He appears to have an RV heave in his subxiphoid area. Lungs have decreased breath sounds on the left base. Mild rales on the right base. There is dullness to percussion in the left base. Abdomen is obese, soft, nontender, nondistended with normoactive bowel sounds. Extremities show 2+ edema. The patient is awake, alert, and oriented. He moves all 4 extremities equally. DIAGNOSTIC STUDIES/LAB DATA: Chemistry is within normal limits. BUN 49, creatinine 1.4 which is approximately at his baseline. CBC within normal limits. EKG shows atrial sensed biventricularly paced. Chest x-ray is pending. ICD interrogation is pending. IMPRESSION: This is a 66-year-old gentleman with a history of severe ischemic cardiomyopathy, who was admitted to the hospital with congestive heart failure. The patient has been started on IV diuretics with improvement in his symptoms. The question is what can be done to improve his overall LV function and functional status. The patient has not had an ischemic workup since October 2015. I would consider ischemic workup. RECOMMENDATIONS: My recommendation is that the patient start digoxin 125 mcg once a day. The patient will restart his losartan at 25 mg a day. The patient will continue with IV diuretics while he is here in the hospital. I will further investigate his atrial arrhythmias and whether improvement in his atrial arrhythmias would help his overall function. [id number]/[facility] #: [id number] MTDD
--- NOTE | 2017-01-11 18:58 | PN ---
Hospitalist Progress Note Responded to Nurse's concern about patient and patient was found to be clammy, diaphoretic, shaking and opened eyes to stimulation but did not respond verbally or follow commands. Manual blood pressure by this author was 68/38. Patient then became responsive to verbal questioning and denied dizziness, Chest Pain, or Shortness of breath, even though patient had increased WOB. Lungs CTA except for 250ml NS bolus, CXR, EKG ordered. Patient transferred to the ICU for respiratory monitoring and Vapotherm or BiPAP initiation if needed. Hold Parameters put on Antihypertensive medications.
--- NOTE | 2017-01-11 19:35 | RAD ---
Indication: CHF, confusion. Single frontal view of the chest performed at 1856 was reviewed. Comparison is made with previous exam dated January 11, 2017. No mediastinal shift is noted. Patient is status post transsternal thoracotomy. Interstitial edema is noted. Pacemaker leads are in place. IMPRESSION: VASCULAR CONGESTION. PACEMAKER LEADS ARE IN PLACE.
[2017-01-11] MEDS: Atorvastatin* 20 MG TAB PO SCH (21:30)
[2017-01-11] MEDS: Insulin GLARGINE(*) 1 UNITS UNIT SUBCUT SCH (21:30)
[2017-01-11] MEDS ORDERED: Albuterol 2.5 MG/3 ML NEB.SOL* (0.083%) INH ONE (21:48)
[2017-01-11] MEDS ORDERED: Albuterol 2.5 MG/3 ML NEB.SOL* (0.083%) ONE (21:57)
[2017-01-12] MEDS: Levothyroxine TAB* 150 MCG TAB PO SCH (06:38)
[2017-01-12 06:52] LABS: BUN/Creatinine Ratio 35.2 (8-20); Blood Urea Nitrogen 44 mg/dL (6-24); Chloride 89 mmol/L (101-111); EGFR African American 73.9 (>60); EGFR Non-African American 57.4 (>60); Glucose 122 mg/dL (70-100); Sodium 136 mmol/L (133-145)
[2017-01-12 07:10] LABS: Anion Gap 3 mmol/L (2-11); CO2 Carbon Dioxide 44 mmol/L (22-32)
[2017-01-12] MEDS: Insulin LISPRO* 1 UNITS UNIT SUBCUT SCH ×4 (08:37→20:34)
[2017-01-12] MEDS: Finasteride TAB* 5 MG PO SCH (08:46)
[2017-01-12] MEDS: Omeprazole CAP* 20 MG PO SCH (08:46)
[2017-01-12] MEDS: Tamsulosin CAP* 0.4 MG PO SCH (08:46)
[2017-01-12] MEDS: Allopurinol TAB* 100 MG PO SCH (08:46)
[2017-01-12] MEDS: Potassium Chlor TAB* 20 MEQ TAB.ER PO SCH ×2 (08:51→20:42)
[2017-01-12] MEDS: Losartan TAB* 25 MG PO SCH (09:35)
[2017-01-12] MEDS: Metoprolol Succinate XL TAB* 25 MG PO SCH ×2 (09:35→20:42)
--- NOTE | 2017-01-12 13:18 | CONS ---
CC: Kel Avila DO * CONSULTATION REPORT: DATE OF CONSULT: 01/12/17 PRIMARY CARE PHYSICIAN: Kel Avila DO REFERRING PHYSICIAN FOR CONSULTATION: Harini Hernandez MD REASON FOR CONSULTATION: Evaluation for hospice and discussion of goals of care. HOSPITAL COURSE: This is a 66-year-old male with a past medical history of ischemic cardiomyopathy with ejection fraction of 20% to 25% with severe pulmonary hypertension and CKD stage 3, who presents to the emergency room in admission for the second time in the past few months for shortness of breath. He presented to the emergency room on the from his assisted living facility for concerns of shortness of breath and altered mental status. The patient was transferred from [facility] after noted to have an elevated troponin and hypokalemia. The patient was found to have moderate bilateral pleural effusions. They brought him in to telemetry unit for rule out acute coronary syndrome. Cardiology was consulted and recommended more diuresis and optimizing his LV function, with discussion with Dr. Santana regarding potential LVAD for him in the future. On the evening of the , the patient became diaphoretic and hypotensive. He was transferred to the ICU for close monitoring. On my encounter in the intensive care unit, the patient is sleeping. He has limited verbal interaction. He does not tell me his name, where he is. When asked why he is here, he says never mind. He denies any shortness of breath or pain. Review of systems is limited and conversation is limited due to the patient's difficulty verbally interacting. I did speak with his son, Riley Merchant, who states he last spoke to him a month ago, he was not aware that he was admitted. He was last seen 2 months ago. He states that when he is around him, he seems like he is fine, but when other people are around, 'he acts like he is suffering'. He states he has trouble walking and he feels that he wants people to feel sorry for him. In terms of his cardiac history, he is aware that he has "a bad heart." They tried to get him into a usp more closer to him in [place], but his needs were not high enough at that time. When bringing up hospice, the son would like him to be at a usp in [place] so that he is closer to him if that is the decision that is made for him. I did speak that I questioned the patient's capacity at this time to make any medical decisions and if it is deemed that he does not have capacity that the son would be the one to determine his goals of care and end-of-life decisions. PAST MEDICAL HISTORY: 1. History of ischemic cardiomyopathy. Ejection fraction of 20% to 25%. 2. Severe pulmonary hypertension. 3. Coronary artery disease. 4. Atrial fibrillation, on anticoagulation. 5. Diabetes. 6. CKD stage 3. 7. Hypertension. 8. Hyperlipidemia. 9. Status post AICD. 10. Mild dementia. 11. Moderate pleural effusions. 12. Gout. 13. Hypothyroidism. INPATIENT MEDICATIONS: 1. Tylenol 650 mg every 4 hours as needed. 2. Albuterol p.r.n. 3. Allopurinol 100 mg p.o. daily. 4. Atorvastatin 20 mg p.o. daily. 5. Digoxin 0.125 mg daily. 6. Finasteride 5 mg p.o. daily. 7. Lantus 10 units subcu daily. 8. Lispro sliding scale. 9. Levothyroxine 150 mcg daily. 10. Losartan 25 mg daily. 11. Metolazone 5 mg x1 given on 01/11/17. 12. Metoprolol succinate 25 mg p.o. b.i.d. 13. Omeprazole 20 mg daily. 14. Potassium chloride 40 mEq p.o. b.i.d. 15. Tamsulosin 0.4 mg p.o. daily. 16. Warfarin 2.5 mg p.o. daily. ALLERGIES: LISINOPRIL. FAMILY HISTORY: Unknown. SOCIAL HISTORY: The patient was living an assisted living facility at [facility] in [facility]. He is a former smoker. No alcohol or illicit drug use. His healthcare proxy is his son, Riley Merchant, phone # [phone]. At this time, the patient is a full code. REVIEW OF SYSTEMS: Limited due to the patient's question of dementia or unwilling to converse. PHYSICAL EXAMINATION: Vitals: Temp 96.1, pulse rate 87, respiratory rate 20, oxygen saturation 99% on 3 L, blood pressure 108/61. General: Obese male, in no acute distress. HEENT: Head normocephalic. Pupils equal and reactive, anicteric. Oropharynx: Mucous membranes moist. No erythema or exudate. Neck: Supple. No lymphadenopathy. Cardiac: Regular rate and rhythm. Systolic murmur most prominent at the right sternal base. Respiratory: Diminished breath sounds, rhonchorous with some modest increased work of breathing. Abdomen: Hypoactive bowel sounds, distended, mildly firm, nontender. Extremities: +1 pretibial edema, more pronounced erythema in the left lower extremity. Distant pulses. Neurologic: The patient is alert and oriented x0. He does have spontaneous movement of his upper and lower extremities. LABORATORY DATA: White count 10.4, hemoglobin 11.4, hematocrit 37, MCV is 77, platelets 214,000. INR is 2.62. Sodium is 136, potassium is 3.9, chloride 89, bicarbonate 44, BUN 44, creatinine 1.25, glucose 135. RADIOGRAPHIC DATA: Chest x-ray, vascular congestion, pacemaker leads are in place. ASSESSMENT AND PLAN: This is a 66-year-old male with the past medical history of ischemic cardiomyopathy, ejection fraction of 20%, status post AICD with chronic kidney disease stage 3 and mild dementia who presents to the emergency room for the second time in the past few months for acute decompensated heart failure. The patient is eligible for hospice with the principal diagnosis of ischemic cardiomyopathy with ejection fraction of 20% with secondary diagnosis of chronic kidney disease stage 3, severe pulmonary hypertension. It appears the patient is not going to be able to go to assisted living and he may never be able to make it back to assisted living. I questioned his capacity at this time. I am not sure if he is just unwilling to speak with me or if his dementia is playing a more significant role. I was unable to discuss goals of care with him. I did speak with the son regarding his goals of care and my concern for his capacity. The son would like him to be moved closer to him if possible and the discussion of hospice was brought up, which the son seemed to be interested in, as he is aware of how grave his prognosis is with his poor cardiac function. I will follow up with Dr. Hernandez discussing capacity and follow up with the son if he in fact does not capacity and to address his code status and decision making to enroll in hospice. TIME SPENT: Greater than 60 minutes was spent doing the consultation, more than half the time was spent in direct patient contact. Thank you for this consultation. I will follow along with you. [id number]/[facility] #: [id number] PADDY
--- NOTE | 2017-01-12 13:58 | PN ---
Subjective Date of Service: 01/12/17 Interval History: HOSPITALIST PROGRESS NOTE Patient seen and examined at bedside. He feels better today, does not remember why he was transferred to ICU. Wants to go home. Tolerating diet well, denies dyspnea, although his RR>30. Family History: Unchanged from Admission Social History: Unchanged from Admission Past Medical History: Unchanged from Admission Objective Active Medications: Acetaminophen (Tylenol Tab*) 650 mg PO Q4H PRN PRN Reason: Pain/fever Allopurinol (Zyloprim Tab*) 100 mg PO DAILY [facility] Last Admin: 01/12/17 08:46 Dose: 100 mg Atorvastatin Calcium (Lipitor*) 20 mg PO BEDTIME [facility] Last Admin: 01/11/17 21:30 Dose: 20 mg Dextrose (D50w Syringe 50 Ml*) 12.5 gm IV PUSH .FOR FS < 60 - SS PRN PRN Reason: FS < 60 Digoxin (Lanoxin Tab*) 0.125 mg PO 1700 [facility] Stop: 01/18/17 16:59 Last Admin: 01/11/17 18:01 Dose: 0.125 mg Finasteride (Proscar Tab*) 5 mg PO DAILY [facility] Last Admin: 01/12/17 08:46 Dose: 5 mg Insulin Glargine (Lantus(*)) 10 units SUBCUT BEDTIME [facility] Last Admin: 01/11/17 21:30 Dose: 10 units Insulin Human Lispro (Humalog*) 0 units SUBCUT ACHS [facility] PRN Reason: Protocol Last Admin: 01/12/17 13:34 Dose: 1 unit Levothyroxine Sodium (Synthroid Tab*) 150 mcg PO DAILY@0600 [facility] Last Admin: 01/12/17 06:38 Dose: 150 mcg Losartan Potassium (Cozaar Tab*) 25 mg PO DAILY [facility] Last Admin: 01/12/17 09:35 Dose: Not Given Metoprolol Succinate (Toprol Xl Tab*) 25 mg PO BID [facility] Last Admin: 01/12/17 09:35 Dose: 25 mg Omeprazole (Prilosec Cap*) 20 mg PO DAILY@0730 [facility] Last Admin: 01/12/17 08:46 Dose: 20 mg Potassium Chloride (Klor Con Er Tab*) 40 meq PO BID [facility] Last Admin: 01/12/17 08:51 Dose: 40 meq Tamsulosin HCl (Flomax Cap*) 0.4 mg PO DAILY [facility] Last Admin: 01/12/17 08:46 Dose: 0.4 mg Warfarin Sodium (Coumadin Tab(*)) 2.5 mg PO DAILY@1700 [facility] PRN Reason: Protocol Last Admin: 01/11/17 18:00 Dose: 2.5 mg Vital Signs - 8 hr 01/12/17 01/12/17 01/12/17 13:00 13:01 13:32 Temperature 97.7 F 97.7 F 97.9 F Pulse Rate 99 76 72 Respiratory 23 20 16 Rate Blood Pressure 95/63 112/51 (mmHg) O2 Sat by Pulse 99 99 Oximetry Oxygen Devices in Use Now: Nasal Cannula - 3 liters Appearance: Elderly gentleman sitting up in bed in NAD. Eyes: No Scleral Icterus Ears/Nose/Mouth/Throat: Mucous Membranes Moist Neck: Trachea Midline Respiratory: Symmetrical Chest Expansion and Respiratory Effort, - - BS+ bilaterally decrease in bases with bilateral crackles Cardiovascular: RRR - Normal S1 and S2 Abdominal: NL Sounds; No Tenderness; No Distention Extremities: - - Bilateral UE and LE pitting edema Neurological: - - AAOx2 (self and place), GAYATRI Result Diagrams: 01/09/17 18:42 01/12/17 08:03 Assess/Plan/Problems-Billing Assessment: Mr. Merchant is a 66yo M with PMH of ETOH abuse (quit in 2005), Afib, systolic CHF , s/p AICD, type 2 DM, hypothyroidism, CAD s/p CABG, CKD stage 3, who presented to [facility] with dyspnea and lethargy, found to have elevated troponin and transferred to [facility] for further evaluation. - Patient Problems (1) Acute on chronic respiratory failure with hypoxemia Comment: - Hypoxic and hypercapnic respiratory failure. - Secondary to a combination of systolic CHF exacerbation and COPD. (2) Acute systolic CHF (congestive heart failure) Comment: - As per note from Dr. Ulloa's office 12/28 patient had gained 12 pounds and "likes ham". Patient adamantly denies dietary non compliance and states he just eats what the facility gives him. - manager investigations contacted his [facility] - they only have a "no added salt" diet, meaning they won't have a salt shaker available, but this is not a low salt diet. If the meal includes high sodium content foods like ham or ferrer, the patient will eat them. - Dr Ulloa felt his prognosis is guarded due to his ischemic heart disease, decompensated CHF, paced rhythm, pulmonary HTN, and COPD. He was planning to start Entresto when patient more compensated. - Cardiology consult with Dr. Santana appreciated. - He was very hypotensive last night requiring transfer to ICU. He's still significantly fluid overload, but his hypotension does not allow for diuresis at this time. (3) Elevated troponin Comment: - Likely secondary to CHF exacerbation in the setting of CKD. - Stress test was abnormal 10/23 and plan at that time was to continue medical management. (4) Afib Comment: - Patient is paced - continue Warfarin and Metoprolol. (5) Diabetes Comment: - Continue Lantus and Lispro SS. (6) Hypokalemia Comment: - Replete. (7) DVT prophylaxis Comment: - Warfarin. (8) Full code status (9) Dementia Comment: - The more I talk to the patient, the more I'm convinced his dementia is interfering with his decision making capacity. - Will request Psych evaluation. Status and Disposition: Inpatient. Transfer to Telemetry.
--- NOTE | 2017-01-12 17:01 | CONSULT ---
Consult Consult: Consult for Medical Decision Making Capacity S: Psychiatry is asked to assess decision making capacity for this 66 y.o. white male with a history of end-stage CHF, pulmonary hypertension and chronic renal disease. The primary team is recommending hospice placement in a facility near [facility] in [place], [place], however, patient is refusing this, stating his preference to return home to his assisted living residence in [facility]. On exam, Mr. Merchant is clearly confused, irritable, somnolent at times and demonstrates fluctuations in consciousness. Examples of his disorganized thinking are as follows. When asked where he is, he responds "My mother." Asked questions assessing orientation to time, he responds "nevermind." Asked serial 7's, he states "Don't bother." O: the patient demonstrates deficits in spacial and temporal orientation, immediate and delayed recall, attention, command following, repitition and fund of knowledge. A/P: Capacity: the patient lacks capacity at this time to make informed medical decisions regarding SNF or hospice placement.
[2017-01-12] MEDS: Digoxin TAB* 0.125 MG PO SCH (18:07)
[2017-01-12] MEDS: Warfarin TAB(*) 2.5 MG PO SCH (18:07)
[2017-01-12] MEDS: Insulin GLARGINE(*) 1 UNITS UNIT SUBCUT SCH (20:36)
[2017-01-12] MEDS: Atorvastatin* 20 MG TAB PO SCH (20:42)
[2017-01-12] MEDS ORDERED: Magnesium Hydroxide LIQ* 30 ML UDC PO ONE (23:11)
[2017-01-13] MEDS: Levothyroxine TAB* 150 MCG TAB PO SCH (05:57)
[2017-01-13 08:02] LABS: Hematocrit 35 % (42-52); Hemoglobin 10.7 g/dl (14.0-18.0); Mean Corpuscular HGB Conc 31 g/dl (31-36); Mean Corpuscular Hemoglobin 24 pg (27-31); Mean Corpuscular Volume 78 fL (80-94); Mean Platelet Volume 8 um3 (7.4-10.4); Red Blood Count 4.53 10^6/ul (4.0-5.4); Red Cell Distribution Width 20 % (10.5-15); White Blood Count 7.1 10^3/ul (3.5-10.8)
[2017-01-13 08:05] LABS: Comments Flag Yes
[2017-01-13 08:08] LABS: BUN/Creatinine Ratio 31.4 (8-20); Calcium 8.4 mg/dL (8.6-10.3); EGFR African American 76.7 (>60); EGFR Non-African American 59.6 (>60); Potassium 4.4 mmol/L (3.5-5.0)
[2017-01-13 09:09] VITALS: BP 116/56
--- NOTE | 2017-01-13 09:16 | PN ---
Subjective Date of Service: 01/13/17 Interval History: HOSPITALIST PROGRESS NOTE Patient seen and examined at bedside. Family History: Unchanged from Admission Social History: Unchanged from Admission Past Medical History: Unchanged from Admission Objective Active Medications: Acetaminophen (Tylenol Tab*) 650 mg PO Q4H PRN PRN Reason: Pain/fever Allopurinol (Zyloprim Tab*) 100 mg PO DAILY [facility] Last Admin: 01/12/17 08:46 Dose: 100 mg Atorvastatin Calcium (Lipitor*) 20 mg PO BEDTIME [facility] Last Admin: 01/12/17 20:42 Dose: 20 mg Dextrose (D50w Syringe 50 Ml*) 12.5 gm IV PUSH .FOR FS < 60 - SS PRN PRN Reason: FS < 60 Digoxin (Lanoxin Tab*) 0.125 mg PO 1700 [facility] Stop: 01/18/17 16:59 Last Admin: 01/12/17 18:07 Dose: 0.125 mg Finasteride (Proscar Tab*) 5 mg PO DAILY [facility] Last Admin: 01/12/17 08:46 Dose: 5 mg Insulin Glargine (Lantus(*)) 10 units SUBCUT BEDTIME [facility] Last Admin: 01/12/17 20:36 Dose: 10 units Insulin Human Lispro (Humalog*) 0 units SUBCUT ACHS [facility] PRN Reason: Protocol Last Admin: 01/12/17 20:34 Dose: 2 unit Levothyroxine Sodium (Synthroid Tab*) 150 mcg PO DAILY@0600 [facility] Last Admin: 01/13/17 05:57 Dose: 150 mcg Losartan Potassium (Cozaar Tab*) 25 mg PO DAILY [facility] Last Admin: 01/12/17 09:35 Dose: Not Given Metoprolol Succinate (Toprol Xl Tab*) 25 mg PO BID [facility] Last Admin: 01/12/17 20:42 Dose: 25 mg Omeprazole (Prilosec Cap*) 20 mg PO DAILY@0730 [facility] Last Admin: 01/12/17 08:46 Dose: 20 mg Potassium Chloride (Klor Con Er Tab*) 40 meq PO BID [facility] Last Admin: 01/12/17 20:42 Dose: 40 meq Tamsulosin HCl (Flomax Cap*) 0.4 mg PO DAILY [facility] Last Admin: 01/12/17 08:46 Dose: 0.4 mg Warfarin Sodium (Coumadin Tab(*)) 2.5 mg PO DAILY@1700 [facility] PRN Reason: Protocol Last Admin: 01/12/17 18:07 Dose: 2.5 mg Vital Signs - 8 hr 01/13/17 01/13/17 01/13/17 04:12 04:17 08:43 Temperature 97.5 F 97.4 F Pulse Rate 71 70 Respiratory 19 16 Rate Blood Pressure 110/48 116/56 (mmHg) O2 Sat by Pulse 96 100 Oximetry Oxygen Devices in Use Now: OxyMask Result Diagrams: 01/13/17 07:43 01/13/17 07:43 Microbiology and Other Data: Microbiology 01/13/17 01:15 Stool Occult Blood (YESSENIA) - Final Stool 01/12/17 14:20 Nasal Screen MRSA (PCR)(YESSENIA) - Final Nasal Mrsa Positive Assess/Plan/Problems-Billing Assessment: Mr. Merchant is a 66yo M with PMH of ETOH abuse (quit in 2005), Afib, systolic CHF , s/p AICD, type 2 DM, hypothyroidism, CAD s/p CABG, CKD stage 3, who presented to [facility] with dyspnea and lethargy, found to have elevated troponin and transferred to [facility] for further evaluation. - Patient Problems (1) Acute on chronic respiratory failure with hypoxemia Comment: - Hypoxic and hypercapnic respiratory failure. - Secondary to a combination of systolic CHF exacerbation and COPD. (2) Acute systolic CHF (congestive heart failure) Comment: - As per note from Dr. Ulloa's office 12/28 patient had gained 12 pounds and "likes ham". Patient adamantly denies dietary non compliance and states he just eats what the facility gives him. - facilities project manager contacted his [facility] - they only have a "no added salt" diet, meaning they won't have a salt shaker available, but this is not a low salt diet. If the meal includes high sodium content foods like ham or ferrer, the patient will eat them. - Dr Ulloa felt his prognosis is guarded due to his ischemic heart disease, decompensated CHF, paced rhythm, pulmonary HTN, and COPD. He was planning to start Entresto when patient more compensated. - Cardiology consult with Dr. Santana appreciated. - He was very hypotensive last night requiring transfer to ICU. He's still significantly fluid overload, but his hypotension does not allow for diuresis at this time. (3) Elevated troponin Comment: - Likely secondary to CHF exacerbation in the setting of CKD. - Stress test was abnormal 10/23 and plan at that time was to continue medical management. (4) Afib Comment: - Patient is paced - continue Warfarin and Metoprolol. (5) Diabetes Comment: - Continue Lantus and Lispro SS. (6) Hypokalemia Comment: - Replete. (7) DVT prophylaxis Comment: - Warfarin. (8) Full code status (9) Dementia Comment: - The more I talk to the patient, the more I'm convinced his dementia is interfering with his decision making capacity. - Will request Psych evaluation. Status and Disposition: Inpatient. Transfer to Telemetry.
[2017-01-13] MEDS: Insulin LISPRO* 1 UNITS UNIT SUBCUT SCH ×2 (09:21→12:42)
[2017-01-13] MEDS: Allopurinol TAB* 100 MG PO SCH (09:23)
[2017-01-13] MEDS: Tamsulosin CAP* 0.4 MG PO SCH (09:23)
[2017-01-13] MEDS: Losartan TAB* 25 MG PO SCH (09:23)
[2017-01-13] MEDS: Metoprolol Succinate XL TAB* 25 MG PO SCH (09:23)
[2017-01-13] MEDS: Omeprazole CAP* 20 MG PO SCH (09:23)
[2017-01-13] MEDS: Potassium Chlor TAB* 20 MEQ TAB.ER PO SCH (09:23)
[2017-01-13] MEDS: Finasteride TAB* 5 MG PO SCH (09:23)
--- NOTE | 2017-01-13 11:12 | PN ---
Subjective Date of Service: 01/13/17 - CC Medications Active Medications: Acetaminophen (Tylenol Tab*) 650 mg PO Q4H PRN PRN Reason: Pain/fever Allopurinol (Zyloprim Tab*) 100 mg PO DAILY [facility] Last Admin: 01/13/17 09:23 Dose: 100 mg Atorvastatin Calcium (Lipitor*) 20 mg PO BEDTIME [facility] Last Admin: 01/12/17 20:42 Dose: 20 mg Dextrose (D50w Syringe 50 Ml*) 12.5 gm IV PUSH .FOR FS < 60 - SS PRN PRN Reason: FS < 60 Digoxin (Lanoxin Tab*) 0.125 mg PO 1700 [facility] Stop: 01/18/17 16:59 Last Admin: 01/12/17 18:07 Dose: 0.125 mg Finasteride (Proscar Tab*) 5 mg PO DAILY [facility] Last Admin: 01/13/17 09:23 Dose: 5 mg Insulin Glargine (Lantus(*)) 10 units SUBCUT BEDTIME [facility] Last Admin: 01/12/17 20:36 Dose: 10 units Insulin Human Lispro (Humalog*) 0 units SUBCUT ACHS [facility] PRN Reason: Protocol Last Admin: 01/13/17 09:21 Dose: Not Given Levothyroxine Sodium (Synthroid Tab*) 150 mcg PO DAILY@0600 [facility] Last Admin: 01/13/17 05:57 Dose: 150 mcg Losartan Potassium (Cozaar Tab*) 25 mg PO DAILY [facility] Last Admin: 01/13/17 09:23 Dose: 25 mg Metoprolol Succinate (Toprol Xl Tab*) 25 mg PO BID [facility] Last Admin: 01/13/17 09:23 Dose: 25 mg Omeprazole (Prilosec Cap*) 20 mg PO DAILY@0730 [facility] Last Admin: 01/13/17 09:23 Dose: 20 mg Potassium Chloride (Klor Con Er Tab*) 40 meq PO BID [facility] Last Admin: 01/13/17 09:23 Dose: 40 meq Tamsulosin HCl (Flomax Cap*) 0.4 mg PO DAILY [facility] Last Admin: 01/13/17 09:23 Dose: 0.4 mg Warfarin Sodium (Coumadin Tab(*)) 2.5 mg PO DAILY@1700 [facility] PRN Reason: Protocol Last Admin: 01/12/17 18:07 Dose: 2.5 mg Objective Vital Signs: Temp Pulse Resp BP Pulse Ox 97.4 F 70 16 116/56 100 01/13/17 08:43 01/13/17 08:43 01/13/17 08:43 01/13/17 08:43 01/13/17 08:43 Oxygen Devices in Use Now: Nasal Cannula, OxyMask Laboratory Results: 01/13/17 07:43 01/13/17 07:43 INR (Anticoag Therapy) 2.96 (0.77-1.02) H 01/13/17 07:43 Total Bilirubin 1.70 mg/dL (0.2-1.0) H 01/09/17 18:42 AST 21 U/L (13-39) 01/09/17 18:42 ALT 14 U/L (7-52) 01/09/17 18:42 Alkaline Phosphatase 137 U/L (34-104) H 01/09/17 18:42 B-Natriuretic Peptide 480 pg/mL (-100) H 01/09/17 18:42 Total Protein 5.3 g/dL (6.4-8.9) L 01/09/17 18:42 Albumin 2.5 g/dL (3.2-5.2) L 01/09/17 18:42 Globulin 2.8 g/dL (2-4) 01/09/17 18:42 Albumin/Globulin Ratio 0.9 (1-3) L 01/09/17 18:42 TSH 6.17 mcIU/mL (0.34-5.60) H 01/11/17 05:55 01/09/17 01/10/17 18:42 00:53 Troponin I 0.16 H* 0.15 H* Assessment/Plan Mr. Merchant is a 66yo M with PMH of ETOH abuse (quit in 2005), Afib, systolic CHF , s/p AICD, type 2 DM, hypothyroidism, CAD s/p CABG, CKD stage 3, who presented to [facility] with dyspnea and lethargy, found to have elevated troponin and transferred to [facility] for further evaluation.
--- NOTE | 2017-01-13 12:27 | DS ---
CC: Dr. Avila; Dr. Ulloa, Final [employer]; with the patient to [facility] DISCHARGE SUMMARY: DATE OF ADMISSION: 01/09/17 DATE OF DISCHARGE: 01/13/17 DISCHARGE DIAGNOSES: 1. [id number] hypoxemic and hypercapnic respiratory failure. 2. Acute systolic congestive heart failure exacerbation. 3. Elevated troponin, secondary to congestive heart failure exacerbation in the setting of chronic kidney disease. 4. Atrial fibrillation. 5. Hyperkalemia. 6. Near-syncope, secondary to hypotension. SECONDARY DIAGNOSES: 1. Prior history of alcohol abuse (quit in 2005). 2. Atrial fibrillation. 3. Systolic congestive heart failure. 4. Status post ICD. 5. Type 2 diabetes. 6. Hypothyroidism. 7. Coronary artery disease, status post coronary artery bypass grafting. 8. Chronic kidney disease, stage 3. MEDICATIONS: 1. Metolazone 10 mg p.o. daily. 2. Glargine insulin 10 units subcutaneously at bedtime. 3. Acetaminophen 650 mg p.o. q. 4 hours p.r.n. pain or fever. 4. Metoprolol succinate 25 mg p.o. b.i.d. 5. Omeprazole 20 mg p.o. daily. 6. Levothyroxine 150 mcg p.o. daily. 7. Dutasteride 0.5 mg p.o. q. a.m. 8. Atorvastatin 20 mg p.o. at bedtime. 9. Allopurinol 100 mg p.o. daily. 10. Torsemide 40 mg p.o. daily. 11. Tamsulosin 0.4 mg p.o. daily. 12. Warfarin 2.5 mg p.o. daily. 13. Losartan 25 mg p.o. daily. 14. Digoxin 0.125 mg p.o. daily. HOSPITAL COURSE: Mr. Merchant is a 66 years old male with a past medical history as stated above that presented to the emergency room, referred from [facility] due to lethargy and shortness of breath. The patient has a longstanding history of ischemic cardiomyopathy and he had been seen by Dr. Ulloa on 12/28 due to shortness of breath and 12-pound weight gain, that was felt to be in part secondary to dietary noncompliance. His diuretics had been increased. Despite those measures, the patient's symptoms continued to progress and I suspect dietary indiscretions continued. Considering all of his comorbidities including his ischemic heart disease, decompensated CHF, pulmonary hypertension, COPD, Dr. Ulloa had stated that his prognosis was guarded. But when I approached that subject with the patient he became very upset. He was diuresed and he did not have significant improvement of his respiratory status, but he did have a near-syncopal episode with a blood pressure in the 60s. He was briefly transferred to the intensive care unit and as his blood pressure improved he was returned to the telemetry floor, but IV diuretics were not resumed due to his hypotension. He was seen in consultation by Cardiology (Dr. Santana ) and he felt that if the patient was interested in aggressive measures, he would recommend starting digoxin, losartan and he thought the patient could be a candidate for a LVAD or further antiarrhythmics. Palliative care consultation was requested and Dr. Claudio saw the patient. At that point, it was felt that the patient probably did not have capacity to make decisions. Although he does not carry a formal diagnosis of dementia, that appears to be the case. He did contact his son and the son's goal was to have him moved closer to him and then discussed the possibility of hospice, which the son seems to be interested in, as he is aware of how grave his prognosis is with his poor cardiac function. The patient was seen in consultation by psychiatry (Dr. Valencia) and his impression is that the patient lacks capacity at this time to make informed medical decisions regarding fdc placement or hospice placement. He was offered a bed at [facility], that is near by his son's home and the plan is for him to be discharged today. He should be evaluated by [facility] during that admission to the [facility]dc to decide if his son is going to sign him on or not. PHYSICAL EXAMINATION: Vitals Signs: Temperature is 97.4, heart rate is 91, respiratory rate is 16, oxygen saturation is 100% on 2L nasal cannula. Blood pressure is 116/56. General: The patient is an elderly male sitting up in the bed in no acute distress. CVS: Normal S1 and S2, regular rate and rhythm. Chest: Breath sounds with bibasilar crackles. Abdomen: Soft. Bowel sounds are present. Extremities: The patient has bilateral pitting edema of the upper and lower extremities and also on his back. Neuro: He is alert, oriented to self and in place; able to move all 4 extremities. DIET: Consistent carb, heart healthy diet. ACTIVITY: As tolerated. DISPOSITION: To [facility]. To be evaluated by [facility]. STATUS WHILE IN THE HOSPITAL: Inpatient. Please keep in mind this is a summarized version of this patient's hospital stay. If you need more information, please feel free to call me at [phone] or please obtain the full medical records. TIME SPENT: Approximately 45 minutes was spent to complete this discharge. [id number]/CPS #: [id number] PADDY
== END 2017-01-13 13:43 | DRG 291 ==
LOC: MEDTELE 16:41 → OBSVTOIN 01-10 13:37 → MED 01-11 00:15 → ICU 01-11 19:40 → MEDTELE 01-12 13:51
PROVIDERS: ADMIT Internal Medicine; ATTEND Internal Medicine
DX: I13.0 Hypertensive heart and chronic kidney disease with heart failure and stage 1 through stage 4 chronic kidney disease, or unspecified chronic kidney disease (principal); I50.23 Acute on chronic systolic (congestive) heart failure; J96.21 Acute and chronic respiratory failure with hypoxia; I95.9 Hypotension, unspecified; E11.22 Type 2 diabetes mellitus with diabetic chronic kidney disease; I27.20 Pulmonary hypertension, unspecified; I48.91 Unspecified atrial fibrillation; I08.1 Rheumatic disorders of both mitral and tricuspid valves; F03.90 Unspecified dementia, unspecified severity, without behavioral disturbance, psychotic disturbance, mood disturbance, and anxiety; E87.5 Hyperkalemia; J96.22 Acute and chronic respiratory failure with hypercapnia; E03.9 Hypothyroidism, unspecified; R55 Syncope and collapse; I25.10 Atherosclerotic heart disease of native coronary artery without angina pectoris; I25.5 Ischemic cardiomyopathy; N18.3 Chronic kidney disease, stage 3 (moderate); E78.5 Hyperlipidemia, unspecified; E87.6 Hypokalemia; J44.9 Chronic obstructive pulmonary disease, unspecified; M10.9 Gout, unspecified; Z79.4 Long term (current) use of insulin; Z79.01 Long term (current) use of anticoagulants; Z95.810 Presence of automatic (implantable) cardiac defibrillator; Z88.8 Allergy status to other drugs, medicaments and biological substances; Z87.891 Personal history of nicotine dependence; Z95.1 Presence of aortocoronary bypass graft; Z91.11 Patient's noncompliance with dietary regimen
CPT/HCPCS: 36415; 71010; 71020; 80048; 80053; 82272; 83735; 83880; 84443; 84484; 85025; 85060; 85610; 87641; 93005; 94640; 94760; A9270-GY; G0378; J1940; J3475